=== PATIENT | female | born 1935 | race Caucasian/White ===

== ENCOUNTER 2017-02-05 17:14 | Inpatient (IN) | payer MEDICARE ==
[~2017-02-05] VITALS: Ht 134.6 cm; Wt 47.1 kg
[~2017-02-05 17:14] MED LIST: COUMADIN2.5 MG PO; HYDROCHLOROTH12.5 M1 PO; LANOXIN125 MCG PO; POTASSIUM99 M1 PO; TRAVATAN Z2.5 ML EACH EYE; VITAMIN B-12500 MC1 PO; VITAMIN D31000 UNI2 PO; ZITHROMAX250 MG PO
[2017-02-05 20:58] LABS: APPEARANCE CLEAR (CLEAR); BILIRUBIN NEGATIVE (NEGATIVE); COLOR YELLOW (YELLOW); GLUCOSE NEGATIVE (NEGATIVE); KETONE NEGATIVE (NEGATIVE); LEUKOCYTE ESTERASE NEGATIVE (NEGATIVE); NITRITE NEGATIVE (NEGATIVE); PROTEIN NEGATIVE (NEGATIVE); SPECIFIC GRAVITY 1.005 (1.005-1.020); UROBILINOGEN NORMAL (NORMAL)
[2017-02-05 21:29] LABS: BASOPHILS 0.2 % (0-2); EOSINOPHILS 0.7 % (0-7); HEMATOCRIT 41.8 % (36.0-48.0); HEMOGLOBIN 12.8 g/dL (12-16); MCH 30.2 pg (26.0-34.0); MCHC 30.6 g/dL (31.0-37.0); MCV 98.6 fL (80.0-100.0); MONOCYTES 9.4 % (2-11); NEUTROPHILS 63.7 % (40-80); PLATELET COUNT 137 10x3/uL (130-400); RBC 4.24 10x6/uL (4.00-5.40); RDW 15.7 % (11.5-14.5); WBC 4.2 10x3/uL (4.8-10.8)
[2017-02-05 21:37] LABS: ALBUMIN 3.2 g/dL (3.4-5.0); ALKALINE PHOSPHATASE 43 U/L (46-116); ALT (SGPT) 17 U/L (10-68); CALC OSMOLALITY 276 mosm/kg (275-300); CALCIUM 9.5 mg/dL (8.5-10.1); CARBON DIOXIDE 39.8 mmol/L (21.0-32.0); CHLORIDE - SERUM 97 mmol/L (98-107); CREATININE - SERUM 0.7 mg/dL (0.6-1.3); GLUCOSE 101 mg/dL (74-106); POTASSIUM - SERUM 3.7 mmol/L (3.5-5.1); PROTEIN - SERUM 6.9 g/dL (6.4-8.2); SODIUM 138 mmol/L (136-145); UREA NITROGEN 14 mg/dL (7-18); eGFR NON AFRICAN AMERICAN 85 mL/min (90-120)
[2017-02-05 21:59] LABS: INR 1.96 (0.85-1.17); PROTIME 22.4 SECONDS (11.6-15.0)
[2017-02-05 22:00] LABS: APTT 125.4 SECONDS (22.8-39.4)
--- NOTE | 2017-02-06 02:11 | NUR ---
PT ARRIVED VIA W/C WITH DX CHR, HYPOXIA. PT DENIES ANY SOB OR DISCOMFORT AT THIS TIME. WILL CONTINUE TO MONITOR.
[2017-02-06 02:31] VITALS: BP 147/56; BMI 25.1
[2017-02-06] MEDS ORDERED: VITAMIN D31000 UNI2 PO (03:11)
[2017-02-06] MEDS ORDERED: COUMADIN5 MG PO (03:11)
[2017-02-06] MEDS ORDERED: HCTZ25 MG PO (03:12)
[2017-02-06] MEDS ORDERED: XALATAN 0.0052.5 ML EACH EYE (03:14)
--- NOTE | 2017-02-06 03:15 | NUR ---
ADMISSION ASSESSMENT, HISTORY AND HOME MED REC COMPLETED. PT VERY CAHTO. IV TO RAC SL. O2 2.5LNC. LUNGS DIMINISHED IN BASES BILAT. BED ALARM ON, CALL LIGHT WITHIN REACH. SR UP X2.
[2017-02-06 04:00] VITALS: BP 147/56
--- NOTE | 2017-02-06 04:22 | NUR ---
PT ATTEMPTING EO CREAL OUT OF BED BEHIND SIDE RAILS STATING SHE NEEEDED TO GO TO THE BATHROOM. ASSITSTED PT TO BSC. GAIT UNSTEADY. VOIDED 300CC OF CLEAR URINE. ASSISTED BACK TO BED. REPOSITIONED IN FOR COMFORT, REINFORCED IMPORTANCE OF CALLING FOR ASSISTANCE TO BSC. SR UP X2, CALL LIGHT WITHIN REACH AND BED ALARM ON.
--- NOTE | 2017-02-06 04:34 | NUR ---
PT REFUSES FIELDS.
--- NOTE | 2017-02-06 05:53 | NUR ---
PT VOIDED 1000CC SINCE ADMISSION. DENIES ANY DISCOMFORT. SR PER CM. O2 2.5LNC. NEEDS MET; WILL CONTINUE TO MONITOR.
--- NOTE | 2017-02-06 07:24 | NUR ---
ASSESSMENT DONE. DENIES NEEDS.
[2017-02-06 08:00] VITALS: BP 141/51
--- NOTE | 2017-02-06 10:03 | NUR ---
RESP UL ON . UP IN CHAIR WITH CALL LIGHT IN REACH. WILL CONT. PLAN OF CARE.
[2017-02-06 12:00] VITALS: BP 106/53
[2017-02-06 12:46] VITALS: Ht 134.6 cm; Wt 47.1 kg
[2017-02-06 16:00] VITALS: BP 100/74
--- NOTE | 2017-02-06 17:42 | NUR ---
WITHOUT CHANGES OR DISTRESS NOTED AT THIS TIME. DENIES NEEDS.
[2017-02-06 19:00] VITALS: BP 102/57
--- NOTE | 2017-02-06 19:27 | NUR ---
ASSESSMENT COMPLETE, PT ALERT, ORIENTED TO SELF. VERY H.O.H. IV TO RIGHT AC SL. SITE CLEAN AND DRY. 02 AT 1 LITER VIA NC. PT DENIES PAIN OR NEEDS AT THIS TIME, BED LOW, CL IN REACH.
[2017-02-07] VITALS: BP 98/42
--- NOTE | 2017-02-07 00:24 | NUR ---
UP WITH ASSIST TO BSC. PT HAS UNSTEADY GAIT.
[2017-02-07 04:00] VITALS: BP 116/34
--- NOTE | 2017-02-07 04:48 | NUR ---
RESTING ON LEFT SIDE, RESPERTION EVEN NO S/S DISTRESS NOTED.
[2017-02-07 04:53] LABS: BASOPHILS 0.2 % (0-2); EOSINOPHILS 0.9 % (0-7); HEMOGLOBIN 12.5 g/dL (12-16); IMMATURE GRANULOCYTES 0.2 % (0-5); LYMPHOCYTES 21.8 % (15-50); MCHC 30.5 g/dL (31.0-37.0); MCV 98.6 fL (80.0-100.0); MEAN PLATELET VOLUME 10.4 fL (7.4-10.4); MONOCYTES 10.4 % (2-11); NEUTROPHILS 66.5 % (40-80); RBC 4.16 10x6/uL (4.00-5.40); RDW 15.7 % (11.5-14.5)
[2017-02-07 04:56] LABS: PLATELET COUNT 169 10x3/uL (130-400); WBC 5.4 10x3/uL (4.8-10.8)
[2017-02-07 05:23] LABS: ALBUMIN 3.1 g/dL (3.4-5.0); ALKALINE PHOSPHATASE 39 U/L (46-116); ALT (SGPT) 16 U/L (10-68); CALC OSMOLALITY 288 mosm/kg (275-300); CALCIUM 9.4 mg/dL (8.5-10.1); CHLORIDE - SERUM 98 mmol/L (98-107); CREATINE KINASE 39 UL (21-215); CREATININE - SERUM 0.9 mg/dL (0.6-1.3); GLUCOSE 90 mg/dL (74-106); POTASSIUM - SERUM 4.1 mmol/L (3.5-5.1); PRO BNP 1298 pg/mL (0-450); PROTEIN - SERUM 6.3 g/dL (6.4-8.2); SODIUM 142 mmol/L (136-145); THYROID STIMULATING HORMONE 0.77 uIU/mL (0.36-3.74); UREA NITROGEN 29 mg/dL (7-18); eGFR NON AFRICAN AMERICAN 64 mL/min (90-120)
[2017-02-07 05:26] LABS: CARBON DIOXIDE 43.6 mmol/L (21.0-32.0)
--- NOTE | 2017-02-07 07:43 | NUR ---
ASSESSMENT DONE. DENIES NEEDS.
[2017-02-07 08:00] VITALS: BP 104/44
--- NOTE | 2017-02-07 10:04 | NUR ---
RESTS IN BED WITH CALL LIGHT IN REACH. WILL CONT. PLAN OF CARE.
[2017-02-07 12:00] VITALS: BP 102/41
--- NOTE | 2017-02-07 17:40 | NUR ---
WITHOUT CHANGES OR DISTRESS NOTED AT THIS TIME. DENIES NEEDS.
[2017-02-07 20:00] VITALS: BP 80/59
--- NOTE | 2017-02-08 00:34 | NUR ---
UP WITH ASSIST TO BSC.
--- NOTE | 2017-02-08 01:43 | NUR ---
RESTING WITH EYES CLOSED, RESPERATIONS EVEN, NO S/S DISTRESS NOTED.
[2017-02-08 04:00] VITALS: BP 105/46
[2017-02-08 05:06] LABS: BASOPHILS 0.4 % (0-2); EOSINOPHILS 1.5 % (0-7); HEMATOCRIT 39.6 % (36.0-48.0); IMMATURE GRANULOCYTES 0.2 % (0-5); LYMPHOCYTES 19.7 % (15-50); MCH 30.1 pg (26.0-34.0); MCHC 30.3 g/dL (31.0-37.0); MCV 99.2 fL (80.0-100.0); MEAN PLATELET VOLUME 10.4 fL (7.4-10.4); MONOCYTES 10.4 % (2-11); NEUTROPHILS 67.8 % (40-80); PLATELET COUNT 149 10x3/uL (130-400); RBC 3.99 10x6/uL (4.00-5.40); RDW 15.8 % (11.5-14.5); WBC 5.4 10x3/uL (4.8-10.8)
[2017-02-08 05:15] LABS: ANION GAP 4.8 mmol/L (8-16); CALCIUM 9.2 mg/dL (8.5-10.1); CREATININE - SERUM 0.9 mg/dL (0.6-1.3); MAGNESIUM - SERUM 1.5 mg/dL (1.8-2.4); PHOSPHOROUS 3.8 mg/dL (2.5-4.9); POTASSIUM - SERUM 4.7 mmol/L (3.5-5.1)
[2017-02-08 05:19] LABS: CARBON DIOXIDE 43.9 mmol/L (21.0-32.0)
--- NOTE | 2017-02-08 07:29 | NUR ---
PT BEING CLEANED UP BY CNAS WILL CONT TO MONITOR
[2017-02-08 08:29] VITALS: BP 114/40
[2017-02-08 11:35] VITALS: BP 101/34
[2017-02-08 15:29] VITALS: BP 102/39
--- NOTE | 2017-02-08 16:47 | NUR ---
Patient Name: JASON LIND Admission Status: ER Accout number: [id number] Admission Date: 02-06-2017 : 1935 Admission Diagnosis:SHORTNESS OF BREATH Attending: Julito Branham Current LOS: 2 Anticipated DC Date: 02-09-2017 Planned Disposition: Home with Home Health Primary Insurance: [employer] ADV PLANNED EXTERNAL PROVIDER: [facility] Discharge Planning Comments: * Is the patient Alert and Oriented? Yes 0 * How many steps to enter\exit or inside your home? RAMP 0 * PCP DR. MATOS 0 * Pharmacy [facility] [address] 0 * Preadmission Environment Home Alone 0 * ADLs Independent 0 * Equipment [facility] 0 * Other Equipment OXYGEN AT NIGHT ONLY [facility] - MEDICAL EQUIPMENT PROVIDER 0 * List name and contact numbers for known caregivers / representatives who currently or will assist patient after discharge: MICHAEL MARROQUIN, SISTER, 0 * Community resources currently utilized None 0 * Please name any agencies selected above. NONE 0 * Additional services required to return to the preadmission environment? No 0 * Can the patient safely return to the preadmission environment? Yes 0 * Has this patient been hospitalized within the prior 30 days at any hospital? No 0 CM RECEIVED ORDER FOR HOME ASSESSMENT, DISCHARGE PLANNING AND HOME HEALTH. CM MET WITH PT IN ROOM TO DISCUSS DISCHARGE PLANNING AND NEEDS. PT REPORTS LIVING AT HOME INDEPENDENTLY AND ALONE. PT HAS CANE THAT SHE USES ALL THE TIME. PT HAS OXYGEN FOR NIGHT TIME USE. PT REPORTS SHE IS NOT GOING TO USE ANY OTHER MEDICAL EQUIPMENT, EVEN IF ORDERED. PT'S MEDICAL EQUIPMENT PROVIDER IS [facility]. PT HAS NO OUTSIDE SERVICES ASSISTING IN THE HOME. CM DISCUSSED AVAILABILITY OF HOME HEALTH, REHAB SERVICES AND MEDICAL EQUIPMENT. PT WILL ACCEPT HOME HEALTH, WANTS [facility] SHE HAS USED THEM IN THE PAST. CHOICE SIGNED. PT REPORTS THE ROLLY THAT TAKES CARE OF HER ADULT SON WILL PICK HER UP FOR DISCHARGE HOME TOMORROW. IMPORTANT MESSAGE FROM MEDICARE PROVIDED AND EXPLAINED. CM CALLED [facility], , SPOKE TO MILO AND PROVIDED REFERRAL INFORMATION. CM FAXED REFERRAL TO [facility] AT [phone]. FOR DISCHARGE, NOTIFY [facility] AT [phone]; FAX DISCHARGE INFORMATION TO [facility] AT [phone]. CM TO FOLLOW AND ASSIST NEEDED. Networks Software Consultant: Donald Wilks
--- NOTE | 2017-02-08 18:29 | NUR ---
PT SITTING UP TO CHAIR DENIES NEEDS
[2017-02-08 19:00] VITALS: BP 111/42
[2017-02-09] VITALS: BP 106/29
--- NOTE | 2017-02-09 01:50 | NUR ---
RESTING WITH EYES CLOSED, RESPERATIONS EVEN, NO S/S DISTRESS NOTED.
--- NOTE | 2017-02-09 02:53 | NUR ---
CALL LIGHT IN REACH. WILL CONTINUE WITH PLAN OF CARE. WILL CONTINUE TO MONITOR.
[2017-02-09 04:00] VITALS: BP 94/43
[2017-02-09 04:57] LABS: BASOPHILS 0.2 % (0-2); EOSINOPHILS 2.2 % (0-7); HEMATOCRIT 37.4 % (36.0-48.0); IMMATURE GRANULOCYTES 0.2 % (0-5); LYMPHOCYTES 20.1 % (15-50); MCH 31.9 pg (26.0-34.0); MCHC 32.1 g/dL (31.0-37.0); MCV 99.5 fL (80.0-100.0); MEAN PLATELET VOLUME 10.1 fL (7.4-10.4); MONOCYTES 10.2 % (2-11); NEUTROPHILS 67.1 % (40-80); PLATELET COUNT 139 10x3/uL (130-400); RBC 3.76 10x6/uL (4.00-5.40); RDW 15.9 % (11.5-14.5); WBC 4.6 10x3/uL (4.8-10.8)
[2017-02-09 05:08] LABS: INR 1.58 (0.85-1.17); PROTIME 18.8 SECONDS (11.6-15.0)
[2017-02-09 05:16] LABS: CALC OSMOLALITY 289 mosm/kg (275-300); CALCIUM 9.1 mg/dL (8.5-10.1); CHLORIDE - SERUM 102 mmol/L (98-107); CREATININE - SERUM 0.7 mg/dL (0.6-1.3); GLUCOSE 92 mg/dL (74-106); MAGNESIUM - SERUM 1.8 mg/dL (1.8-2.4); POTASSIUM - SERUM 4.9 mmol/L (3.5-5.1); SODIUM 141 mmol/L (136-145); UREA NITROGEN 39 mg/dL (7-18); eGFR NON AFRICAN AMERICAN 85 mL/min (90-120)
[2017-02-09 05:20] LABS: CARBON DIOXIDE 40.6 mmol/L (21.0-32.0)
[2017-02-09] MEDS ORDERED: LISINOPRIL5 MG PO (06:57)
[2017-02-09] MEDS ORDERED: LASIX40 MG PO (06:57)
[2017-02-09] MEDS ORDERED: K-DUR20 MEQ PO (06:58)
[2017-02-09] MEDS ORDERED: PULMICORT0.5 MG/21 UPD (06:58)
[2017-02-09] MEDS ORDERED: MAG-OX 400 MG400 MG PO (06:59)
--- NOTE | 2017-02-09 07:14 | NUR ---
PT LAYING TO LEFT SIDE SLEEPING. ARROUSES EASILY. NO S/S DISTRESS DENIES NEEDS AT THIS TIME WILL CONT TO MONITOR
--- NOTE | 2017-02-09 08:02 | NUR ---
O2 CHECK ON ROOM AIR SPO2 67% PLACED PATIENT BACK ON O2 OF 1L TO BRING O2 BACK TO 88%. PER NIGHT THERAPIST PATIENT CAN ONLY BE ON 1L DUE TO HER CO2 LEVEL.
--- NOTE | 2017-02-09 08:52 | NUR ---
[facility] [address] SPOKE WITH ESME/PHARMACIST
--- NOTE | 2017-02-09 09:09 | NUR ---
Patient Name: JASON LIND Encounter No: [id number] : 1935 Primary Insurance: [employer]ARE ADV Anticipated DC Date: 02-09-2017 Planned Disposition: Home with Home Health External Planned Provider: [facility] DCP follow-up note: CM RECEIVED DISCHARGE ORDER, CALLED [facility], , SPOKE TO SYLVIA WHO REPORTED ACCEPTANCE OF PT AND ADMISSION FOR TOMORROW AT HOME. CM FAXED DISCHARGE TO [facility] AT [phone]. PT NOTIFIED, DENIES FURTHER DISCHARGE NEEDS, REPORTS CAREGIVER FOR SON TO PICK HER UP FOR DISCHARGE HOME TODAY. Glue Line Operator: Donald Wilks
[2017-02-09 09:31] VITALS: BP 125/46
--- NOTE | 2017-02-09 10:05 | NUR ---
WENT OVER DC PAPERWORK WITH PT PT VERBALIZES UNDERSTANDING. DC PIV WITH CATH TIP INTACT DC TELE AND RETURNED TO MEDICAL OFFICE TECHNOLOGIST.
--- NOTE | 2017-02-09 11:02 | NUR ---
PT WAS WHEELED OUT TO FRONT ENTRANCE BY VOLUNTEER, FRIEND HERE TO PICK HER UP
== END 2017-02-09 11:06 | disposition home health service (06) | DRG 291 ==
LOC: D.ER 17:14 → D.M2 02-06 01:26
PROVIDERS: Emergency Medicine; Physician Assistant; ADMIT Family Medicine
DX: I11.0 Hypertensive heart disease with heart failure (principal); J96.22 Acute and chronic respiratory failure with hypercapnia; J96.21 Acute and chronic respiratory failure with hypoxia; J98.11 Atelectasis; I50.33 Acute on chronic diastolic (congestive) heart failure; E55.9 Vitamin D deficiency, unspecified; H35.30 Unspecified macular degeneration; I48.91 Unspecified atrial fibrillation; M41.9 Scoliosis, unspecified; Z79.01 Long term (current) use of anticoagulants; J44.9 Chronic obstructive pulmonary disease, unspecified; G47.33 Obstructive sleep apnea (adult) (pediatric); I08.0 Rheumatic disorders of both mitral and aortic valves; Z86.718 Personal history of other venous thrombosis and embolism

== ENCOUNTER 2017-07-07 18:33 | Emergency (ER) | payer MEDICARE ==
[2017-02-06 12:46] VITALS: BMI 25.0
[~2017-07-07 18:33] MED LIST changes: +COUMADIN5 MG PO; +HCTZ25 MG PO; +K-DUR20 MEQ PO; +LASIX40 MG PO; +LISINOPRIL5 MG PO; +MAG-OX 400 MG400 MG PO; +PULMICORT0.5 MG/21 UPD; +XALATAN 0.0052.5 ML EACH EYE
[2017-07-07 20:26] LABS: APTT 45.6 SECONDS (22.8-39.4); INR 2.18 (0.85-1.17); PROTIME 23.6 SECONDS (11.6-15.0)
[2017-07-07 20:27] LABS: D-DIMER-QUANTITATIVE 3.24 ug/mLFEU (0.20-0.54)
[2017-07-07 20:29] LABS: ALBUMIN 3.6 g/dL (3.4-5.0); ANION GAP 8.8 mmol/L (8-16); BILIRUBIN - TOTAL 0.56 mg/dL (0.2-1.3); CALCIUM 10.1 mg/dL (8.5-10.1); CARBON DIOXIDE 38.4 mmol/L (21.0-32.0); CREATININE - SERUM 0.8 mg/dL (0.6-1.3); POTASSIUM - SERUM 5.2 mmol/L (3.5-5.1); PROTEIN - SERUM 7.9 g/dL (6.4-8.2)
[2017-07-07 20:33] LABS: DIGOXIN 1.98 ng/mL (0.90-2.00); TROPONIN-I 0.021 ng/mL (0.000-0.060)
[2017-07-07 21:07] LABS: BASOPHILS 0.1 % (0-2); EOSINOPHILS 0.6 % (0-7); HEMATOCRIT 33.5 % (36.0-48.0); HEMOGLOBIN 10.7 g/dL (12-16); IMMATURE GRANULOCYTES 0.1 % (0-5); MCH 30.7 pg (26.0-34.0); MCHC 31.9 g/dL (31.0-37.0); MCV 96.3 fL (80.0-100.0); MEAN PLATELET VOLUME 11.2 fL (7.4-10.4); MONOCYTES 6.8 % (2-11); NEUTROPHILS 77.4 % (40-80); PLATELET COUNT 199 10x3/uL (130-400); RBC 3.48 10x6/uL (4.00-5.40); RDW 14.1 % (11.5-14.5); WBC 6.8 10x3/uL (4.8-10.8)
== END 2017-07-07 22:10 | disposition home or self-care (01) ==
LOC: D.ER 18:33
PROVIDERS: Emergency Medicine
DX: S22.009A Unspecified fracture of unspecified thoracic vertebra, initial encounter for closed fracture (principal); X58.XXXA Exposure to other specified factors, initial encounter; Y93.89 Activity, other specified; Y92.019 Unspecified place in single-family (private) house as the place of occurrence of the external cause; I48.91 Unspecified atrial fibrillation; I10 Essential (primary) hypertension; I49.3 Ventricular premature depolarization; I45.10 Unspecified right bundle-branch block

== ENCOUNTER 2017-07-17 05:04 | Emergency (ER) | payer MEDICARE, MEDICAID ==
[2017-02-06 12:46] VITALS: BMI 25.0
[2017-07-17 21:53] LABS: CKMB 6.9 U/L (0.0-3.6); CREATINE KINASE 85 UL (21-215)
[2017-07-17 21:55] LABS: TROPONIN-I 0.296 ng/mL (0.000-0.060)
[2017-07-18 03:52] LABS: BASOPHILS 0.1 % (0-2); EOSINOPHILS 0.4 % (0-7); HEMATOCRIT 32.3 % (36.0-48.0); HEMOGLOBIN 9.9 g/dL (12-16); IMMATURE GRANULOCYTES 0.1 % (0-5); LYMPHOCYTES 16.4 % (15-50); MCH 30.6 pg (26.0-34.0); MCHC 30.7 g/dL (31.0-37.0); MEAN PLATELET VOLUME 10.5 fL (7.4-10.4); MONOCYTES 9.2 % (2-11); NEUTROPHILS 73.8 % (40-80); PLATELET COUNT 186 10x3/uL (130-400); RBC 3.24 10x6/uL (4.00-5.40); RDW 14.5 % (11.5-14.5); WBC 7.1 10x3/uL (4.8-10.8)
[2017-07-18 04:05] LABS: MCV 99.7 fL (80.0-100.0)
[2017-07-18 04:45] LABS: CALC OSMOLALITY 284 mosm/kg (275-300); CALCIUM 8.9 mg/dL (8.5-10.1); CHLORIDE - SERUM 98 mmol/L (98-107); CKMB 5.4 U/L (0.0-3.6); CREATINE KINASE 71 UL (21-215); GLUCOSE 95 mg/dL (74-106); POTASSIUM - SERUM 4.5 mmol/L (3.5-5.1); SODIUM 140 mmol/L (136-145); UREA NITROGEN 28 mg/dL (7-18)
[2017-07-18 04:52] LABS: CREATININE - SERUM 0.8 mg/dL (0.6-1.3); eGFR NON AFRICAN AMERICAN 73 mL/min (90-120)
[2017-07-18 04:53] LABS: TROPONIN-I 0.213 ng/mL (0.000-0.060)
[2017-07-18 09:20] LABS: CKMB 6.5 U/L (0.0-3.6); CREATINE KINASE 84 UL (21-215)
[2017-07-18 09:26] LABS: TROPONIN-I 0.339 ng/mL (0.000-0.060)
== END 2017-07-17 08:32 | disposition home or self-care (01) ==
LOC: D.ER 05:04
PROVIDERS: Family Medicine
DX: S16.1XXA Strain of muscle, fascia and tendon at neck level, initial encounter (principal); W19.XXXA Unspecified fall, initial encounter; Y93.89 Activity, other specified; Y92.019 Unspecified place in single-family (private) house as the place of occurrence of the external cause; S29.012A Strain of muscle and tendon of back wall of thorax, initial encounter; S39.012A Strain of muscle, fascia and tendon of lower back, initial encounter; R10.2 Pelvic and perineal pain; I10 Essential (primary) hypertension

== ENCOUNTER 2017-07-17 11:37 | Inpatient (IN) | payer MEDICARE, MEDICAID | END 2017-07-28 08:37 | disposition PTX | DRG 208 | LOC: D.ER 11:37 → D.SDCHOLD 20:41 → D.M2 07-19 15:14 → D.ICU 07-25 23:16 → D.M2 07-27 22:21 | PROC: 5A12012 Performance of Cardiac Output, Single, Manual (ICD-10-PCS; principal; 2017-07-25) | PROC: 5A1945Z Respiratory Ventilation, 24-96 Consecutive Hours (ICD-10-PCS; 2017-07-25) | PROC: 5A12012 Performance of Cardiac Output, Single, Manual (ICD-10-PCS; 2017-07-25) | PROC: 0BH17EZ Insertion of Endotracheal Airway into Trachea, Via Natural or Artificial Opening (ICD-10-PCS; 2017-07-25) | PROC: 05HC33Z Insertion of Infusion Device into Left Basilic Vein, Percutaneous Approach (ICD-10-PCS; 2017-07-26) | PROC: B54NZZA Ultrasonography of Left Upper Extremity Veins, Guidance (ICD-10-PCS; 2017-07-26) | DX: J18.9 Pneumonia, unspecified organism (principal); E43 Unspecified severe protein-calorie malnutrition; R53.2 Functional quadriplegia; J96.22 Acute and chronic respiratory failure with hypercapnia; J96.21 Acute and chronic respiratory failure with hypoxia; J44.0 Chronic obstructive pulmonary disease with (acute) lower respiratory infection; G72.81 Critical illness myopathy; G93.1 Anoxic brain damage, not elsewhere classified; J98.11 Atelectasis; I11.0 Hypertensive heart disease with heart failure; I50.9 Heart failure, unspecified; H91.90 Unspecified hearing loss, unspecified ear; H35.30 Unspecified macular degeneration; Z68.25 Body mass index [BMI] 25.0-25.9, adult; E86.0 Dehydration; R39.2 Extrarenal uremia; D64.9 Anemia, unspecified; I48.2 Chronic atrial fibrillation; Z66 Do not resuscitate; T17.990A Other foreign object in respiratory tract, part unspecified in causing asphyxiation, initial encounter; J69.0 Pneumonitis due to inhalation of food and vomit; E87.5 Hyperkalemia; I08.3 Combined rheumatic disorders of mitral, aortic and tricuspid valves; I27.20 Pulmonary hypertension, unspecified; Z86.718 Personal history of other venous thrombosis and embolism ==